=== PATIENT | male | born 1970 | race Caucasian/White ===

== ENCOUNTER 2017-09-07 19:49 | Emergency (ER) | payer BC ==
[2017-09-07 19:58] VITALS: BP 135/60; PULSE 114; RESP 18; TEMP 98.2
--- NOTE | 2017-09-07 20:27 | ED ---
Skin/Abscess/FB HPI - General Chief complaint: Skin/Abscess/Foreign Body Stated complaint: tic bite Time Seen by Provider: 09/07/17 19:58 Source: patient, RN notes reviewed, old records reviewed Mode of arrival: ambulatory Limitations: no limitations - History of Present Illness Initial comments: This is a 47-year-old male presents emergency department today chief complaint for evaluation of a tick bite and fatigue. He reports that he was bit by an Samoan dog tick. He showed me a picture of the tick. Patient states that he' s been feeling fatigued. He reports that around the tick bite site there is been some mild erythema. Patient was concerned about this. Patient states that he has a heart history. He denies any chest pain shortness of breath. He states that he just seemed very sleepy today. Patient denies any fever or chills. Patient does not know how long the tick was in place. - Related Data Home Medications Medication Instructions Recorded Confirmed Aspirin [Adult Low Dose Aspirin EC] 81 mg PO DAILY 03/18/16 03/18/16 Clopidogrel [Plavix] 75 mg PO DAILY 03/18/16 03/18/16 Evolocumab [Repatha Syringe] 140 mg SQ Q14D 03/18/16 03/18/16 Lisinopril [Zestril] 5 mg PO DAILY 03/18/16 03/18/16 [place]-3 Fatty Acids [[place]-3] 1,000 mg PO DAILY 03/18/16 03/18/16 Rosuvastatin [Crestor] 20 mg PO DAILY 03/18/16 03/18/16 Vitamin E 1,000 unit PO DAILY 03/18/16 03/18/16 Previous Rx's Medication Instructions Recorded Doxycycline [Vibramycin] 100 mg PO Q12HR #28 capsule 09/07/17 Allergies Allergy/AdvReac Type Severity Reaction Status Date / Time No Known Allergies Allergy Verified 09/07/17 19:58 Review of Systems ROS Statement: Those systems with pertinent positive or pertinent negative responses have been documented in the HPI. ROS Other: All systems not noted in ROS Statement are negative. Past Medical History Past Medical History: No Reported History History of Any Multi-Drug Resistant Organisms: None Reported Past Surgical History: Coronary Bypass/CABG Additional Past Surgical History / Comment(s): spleen Past Psychological History: No Psychological Hx Reported Smoking Status: Current every day smoker Past Alcohol Use History: Occasional Past Drug Use History: None Reported General Exam - General Exam Comments Initial Comments: 47-year-old male. Alert. No distress. Limitations: no limitations General appearance: alert, in no apparent distress Head exam: Present: atraumatic, normocephalic, normal inspection Eye exam: Present: normal appearance, PERRL, EOMI. Absent: scleral icterus, conjunctival injection, periorbital swelling ENT exam: Present: normal exam, mucous membranes moist Neck exam: Present: normal inspection. Absent: tenderness, meningismus, lymphadenopathy Respiratory exam: Present: normal lung sounds bilaterally. Absent: respiratory distress, wheezes, rales, rhonchi, stridor Cardiovascular Exam: Present: regular rate, normal rhythm, normal heart sounds. Absent: systolic murmur, diastolic murmur, rubs, gallop, clicks GI/Abdominal exam: Present: soft, normal bowel sounds. Absent: distended, tenderness, guarding, rebound, rigid Extremities exam: Present: normal inspection, full ROM, normal capillary refill , other (3 cm area of redness over the left lateral thigh around the area from the tick bite.). Absent: tenderness, pedal edema, joint swelling, calf tenderness Back exam: Present: normal inspection Neurological exam: Present: alert, oriented X3, CN II-XII intact Psychiatric exam: Present: normal affect, normal mood Skin exam: Present: warm, dry, intact, normal color. Absent: rash Course Vital Signs 09/07/17 19:55 Temperature 98.2 F Pulse Rate 114 H Respiratory 18 Rate Blood Pressure 135/60 O2 Sat by Pulse 99 Oximetry Medical Decision Making - Medical Decision Making 47-year-old male with a history of tick bite yesterday. No rashes subsided some erythema around the tick bite. Discussed that this tick can spread [place] spotted fever. Patient will be treated for prophylactically with Doxycycline. Will be discharged at this time with close follow-up with PCP. QUESTIONS answered and return parameters were discussed. Disposition Clinical Impression: Tick bite Disposition: HOME SELF-CARE Condition: Good Instructions: Tick Bite (ED), [place] Spotted Fever (ED), Lyme Disease ( ED) Additional Instructions: Patient advised to take the medication as prescribed. Follow-up with primary care provider in the next 1-2 days. Monitor the area of redness. Return to the emergency department if any other alarming signs or symptoms occur. Prescriptions: Doxycycline [Vibramycin] 100 mg PO Q12HR #28 capsule Is patient prescribed a controlled substance at d/c from ED?: No If prescribed controlled substance>3 days was MAPS reviewed?: No When asked, does pt state using other controlled substances?: No Referrals: Myesha Donnelly MD [Primary Care Provider] - 1-2 days Time of Disposition: 20:24
== END 2017-09-07 20:33 | disposition home or self-care (01) ==
LOC: EC 19:49
DX: S70.362A Insect bite (nonvenomous), left thigh, initial encounter (principal); R53.83 Other fatigue; F17.200 Nicotine dependence, unspecified, uncomplicated; Z79.02 Long term (current) use of antithrombotics/antiplatelets; Z79.82 Long term (current) use of aspirin; Z79.899 Other long term (current) drug therapy; Z95.1 Presence of aortocoronary bypass graft; W57.XXXA Bitten or stung by nonvenomous insect and other nonvenomous arthropods, initial encounter
CPT/HCPCS: 99282

== ENCOUNTER 2019-05-18 22:36 | Observation (INO) | payer BC ==
[2019-05-18] MEDS ORDERED: HYDROmorphone 1 MG/ML 1 ML SYRINGE IM STA (23:17)
--- NOTE | 2019-05-18 23:20 | ED ---
General Adult HPI - General Source: patient, family, RN notes reviewed Mode of arrival: EMS Limitations: no limitations <Arturo Stroud - Last Filed: 05/19/19 00:21> <Jose Lee - Last Filed: 05/23/19 07:45> - General Chief complaint: Fall Stated complaint: Rib injury Time Seen by Provider: 05/18/19 22:45 - History of Present Illness Initial comments: Patient is a pleasant 49-year-old male presenting to the emergency Department with fall and right rib injury. Patient states less than an hour ago he fell walking out of the bathroom. Patient believes he tripped. Patient may have struck the dresser and hurt the right ribs. Patient did hear a pop. Patient denies any dyspnea however states it does hurt to take deep breaths. No other area of injury or concern. No head injury or loss of consciousness. No midline back pain. No weakness. (Arturo Stroud) - Related Data Home Medications Medication Instructions Recorded Confirmed Aspirin [Adult Low Dose Aspirin EC] 81 mg PO DAILY 03/18/16 05/19/19 Clopidogrel [Plavix] 75 mg PO DAILY 03/18/16 05/19/19 Evolocumab [Repatha Syringe] 140 mg SQ Q14D 03/18/16 05/19/19 Lisinopril [Zestril] 5 mg PO DAILY 03/18/16 05/19/19 [place]-3 Fatty Acids [[place]-3] 2,000 mg PO AC-BID 03/18/16 05/19/19 Rosuvastatin [Crestor] 20 mg PO DAILY 03/18/16 05/19/19 Vitamin E 1,000 unit PO DAILY 03/18/16 05/19/19 Atenolol 25 mg PO DAILY 05/19/19 05/19/19 Allergies Allergy/AdvReac Type Severity Reaction Status Date / Time No Known Allergies Allergy Verified 05/19/19 09:24 Review of Systems ROS Other: All systems not noted in ROS Statement are negative. Constitutional: Denies: fever Eyes: Denies: eye pain ENT: Denies: ear pain Respiratory: Denies: cough Cardiovascular: Denies: chest pain Endocrine: Denies: fatigue Gastrointestinal: Denies: abdominal pain Genitourinary: Denies: dysuria Musculoskeletal: Denies: back pain Skin: Denies: rash Neurological: Denies: weakness <Arturo Stroud - Last Filed: 05/19/19 00:21> ROS Other: All systems not noted in ROS Statement are negative. <RosaJose - Last Filed: 05/23/19 07:45> ROS Statement: Those systems with pertinent positive or pertinent negative responses have been documented in the HPI. 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 Past Psychological History: No Psychological Hx Reported Smoking Status: Current some day smoker Past Alcohol Use History: Occasional Past Drug Use History: None Reported <Arturo Stroud - Last Filed: 05/19/19 00:21> - Past Family History Father Family Medical History: Coronary Artery Disease (CAD), Myocardial Infarction ([place]) Mother Family Medical History: Cancer, Hypertension Additional Family Medical History / Comment(s): Mother had breast cancer <RosaJose - Last Filed: 05/23/19 07:45> General Exam Limitations: no limitations General appearance: alert, in no apparent distress Head exam: Present: normocephalic Eye exam: Present: normal appearance Neck exam: Present: normal inspection. Absent: tenderness Respiratory exam: Present: normal lung sounds bilaterally, chest wall tenderness (Right lateral mid to lower ribs with abrasion and tenderness) Cardiovascular Exam: Present: regular rate, normal rhythm GI/Abdominal exam: Present: soft. Absent: distended, tenderness, guarding, rebound, rigid Extremities exam: Present: normal inspection Back exam: Present: normal inspection. Absent: CVA tenderness (R), vertebral tenderness Neurological exam: Present: alert. Absent: motor sensory deficit Psychiatric exam: Present: normal affect, normal mood Skin exam: Present: abrasion (Right mid to lower ribs) <Arturo Stroud - Last Filed: 05/19/19 00:21> Course <Arturo Stroud - Last Filed: 05/19/19 00:21> Vital Signs 05/18/19 05/19/19 05/19/19 22:43 00:50 02:22 Temperature 97.3 F L Pulse Rate 74 79 86 Respiratory 18 18 16 Rate Blood Pressure 105/99 109/58 119/84 O2 Sat by Pulse 99 97 96 Oximetry - Reevaluation(s) Reevaluation #1: 05/19/19 00:21 Patient reevaluated and still complaining of discomfort. Patient and are updated on room fractures. After discussion patient is agreeable to additional imaging and now is agreeable to IV placement. Patient previously had refused IV. He is will be endorsed Dr. Barron for final disposition pending CT results. (Arturo Stroud) Medical Decision Making - Lab Data Result diagrams: 05/19/19 00:35 05/19/19 00:35 <Jose Lee - Last Filed: 05/23/19 07:45> - Medical Decision Making Patient was found to have small pneumothorax, and case discussed with trauma surgeon covering who will accept with delayed imaging to ensure that there is no enlargement of a pneumothorax. Patient placed on 100% oxygen. (Jose Lee) - Lab Data Lab Results 05/19/19 05/19/19 05/19/19 Range/Units 00:35 00:35 00:35 WBC 10.9 H (3.8-10.6) k/uL RBC 4.66 (4.30-5.90) m/uL Hgb 15.8 (13.0-17.5) gm/dL Hct 46.6 (39.0-53.0) % MCV 99.9 (80.0-100.0) fL MCH 33.8 (25.0-35.0) pg MCHC 33.9 (31.0-37.0) g/dL RDW 12.7 (11.5-15.5) % Plt Count 204 (150-450) k/uL Neutrophils % 68 % Lymphocytes % 23 % Monocytes % 5 % Eosinophils % 1 % Basophils % 1 % Neutrophils # 7.4 (1.3-7.7) k/uL Lymphocytes # 2.5 (1.0-4.8) k/uL Monocytes # 0.6 (0-1.0) k/uL Eosinophils # 0.1 (0-0.7) k/uL Basophils # 0.1 (0-0.2) k/uL PT 10.1 (9.0-12.0) sec INR 1.0 (<1.2) APTT 22.7 (22.0-30.0) sec Sodium 140 (137-145) mmol/L Potassium 4.1 (3.5-5.1) mmol/L Chloride 108 H (98-107) mmol/L Carbon Dioxide 23 (22-30) mmol/L Anion Gap 9 mmol/L BUN 14 (9-20) mg/dL Creatinine 0.81 (0.66-1.25) mg/dL Est GFR (CKD-EPI)AfAm >90 (>60 ml/min/1.73 sqM) Est GFR (CKD-EPI)NonAf >90 (>60 ml/min/1.73 sqM) Glucose 114 H (74-99) mg/dL Calcium 9.0 (8.4-10.2) mg/dL Total Bilirubin 0.5 (0.2-1.3) mg/dL AST 91 H (17-59) U/L ALT 108 H (4-49) U/L Alkaline Phosphatase 102 (38-126) U/L Total Protein 7.3 (6.3-8.2) g/dL Albumin 4.2 (3.5-5.0) g/dL Serum Alcohol 211 H* mg/dL Blood Type Blood Type Recheck Bld Type Recheck Status Antibody Screen Spec Expiration Date 05/19/19 Range/Units 00:35 WBC (3.8-10.6) k/uL RBC (4.30-5.90) m/uL Hgb (13.0-17.5) gm/dL Hct (39.0-53.0) % MCV (80.0-100.0) fL MCH (25.0-35.0) pg MCHC (31.0-37.0) g/dL RDW (11.5-15.5) % Plt Count (150-450) k/uL Neutrophils % % Lymphocytes % % Monocytes % % Eosinophils % % Basophils % % Neutrophils # (1.3-7.7) k/uL Lymphocytes # (1.0-4.8) k/uL Monocytes # (0-1.0) k/uL Eosinophils # (0-0.7) k/uL Basophils # (0-0.2) k/uL PT (9.0-12.0) sec INR (<1.2) APTT (22.0-30.0) sec Sodium (137-145) mmol/L Potassium (3.5-5.1) mmol/L Chloride (98-107) mmol/L Carbon Dioxide (22-30) mmol/L Anion Gap mmol/L BUN (9-20) mg/dL Creatinine (0.66-1.25) mg/dL Est GFR (CKD-EPI)AfAm (>60 ml/min/1.73 sqM) Est GFR (CKD-EPI)NonAf (>60 ml/min/1.73 sqM) Glucose (74-99) mg/dL Calcium (8.4-10.2) mg/dL Total Bilirubin (0.2-1.3) mg/dL AST (17-59) U/L ALT (4-49) U/L Alkaline Phosphatase (38-126) U/L Total Protein (6.3-8.2) g/dL Albumin (3.5-5.0) g/dL Serum Alcohol mg/dL Blood Type O Negative Blood Type Recheck No Previous Record Bld Type Recheck Status CABO Indicated Antibody Screen NEGATIVE Spec Expiration Date 05/22/2019 - 2338 Disposition <Arturo Stroud - Last Filed: 05/19/19 00:21> <Jose Lee - Last Filed: 05/23/19 07:45> Clinical Impression: Fall, Pneumothorax on right Disposition: ADMITTED IP TO THIS [facility] Condition: Fair
--- NOTE | 2019-05-18 23:54 | XR ---
EXAMINATION TYPE: XR ribs RT w pa chest xray DATE OF EXAM: 05/18/2019 COMPARISON: NONE HISTORY: Chest pain rib pain TECHNIQUE: 5 views FINDINGS: Heart is normal. Lungs are clear of infiltrate. There is no pleural effusion or pneumothora x. There is nondisplaced fracture right lateral seventh rib. There is probably also fracture of the r ight eighth rib. There are sternal wires. IMPRESSION: Right-sided nondisplaced rib fractures. No active cardiopulmonary disease.
[2019-05-19] MEDS ORDERED: HYDROmorphone 1 MG/ML 1 ML SYRINGE IVP STA (00:19)
[2019-05-19] MEDS ORDERED: SODIUM CHLORIDE 0.9% 1,000 ML IV STA (00:19)
[2019-05-19 01:12] LABS: Basophils # (A) 0.1 k/uL (0-0.2); Basophils % (A) 1 %; Eosinophils # (A) 0.1 k/uL (0-0.7); Eosinophils % (A) 1 %; HCT 46.6 % (39.0-53.0); HGB 15.8 gm/dL (13.0-17.5); Lymphocytes # (A) 2.5 k/uL (1.0-4.8); Lymphocytes % (A) 23 %; MCH 33.8 pg (25.0-35.0); MCHC 33.9 g/dL (31.0-37.0); MCV 99.9 fL (80.0-100.0); Mean Platelet Volume 7.3; Monocytes # (A) 0.6 k/uL (0-1.0); Monocytes % (A) 5 %; Neutrophils # (A) 7.4 k/uL (1.3-7.7); Neutrophils % (A) 68 %; Platelet Count 204 k/uL (150-450); RBC 4.66 m/uL (4.30-5.90); RDW 12.7 % (11.5-15.5); WBC 10.9 k/uL (3.8-10.6)
[2019-05-19 01:16] LABS: ALT 108 U/L (4-49); AST 91 U/L (17-59); African American GFR (CKD) >90 (>60 ml/min/1.73 sqM); Albumin 4.2 g/dL (3.5-5.0); Alkaline Phosphatase 102 U/L (38-126); Anion Gap 9 mmol/L; Blood Urea Nitrogen 14 mg/dL (9-20); Carbon Dioxide 23 mmol/L (22-30); Chloride 108 mmol/L (98-107); Glucose 114 mg/dL (74-99); Non-African American GFR(CKD) >90 (>60 ml/min/1.73 sqM); Potassium 4.1 mmol/L (3.5-5.1); Sodium 140 mmol/L (137-145); Total Bilirubin 0.5 mg/dL (0.2-1.3); Total Protein 7.3 g/dL (6.3-8.2)
[2019-05-19 01:17] LABS: Partial Thromboplastin Time 22.7 sec (22.0-30.0); Prothrombin Time 10.1 sec (9.0-12.0)
[2019-05-19 01:33] LABS: Alcohol 211 mg/dL
--- NOTE | 2019-05-19 01:33 | CT ---
EXAMINATION TYPE: CT ChestAbdPelvis w con DATE OF EXAM: 05/19/2019 COMPARISON: None HISTORY: Patient presents with right sided pain after fall. CT DLP: 949.9 mGycm Automated exposure control for dose reduction was used. CONTRAST: Performed with IV Contrast, patient injected with 100mL mL of Isovue 300. Multiple axial sections were obtained from the thoracic inlet to the floor the pelvis with intravenou s contrast Isovue 100 mL. FINDINGS: There is mild subsegmental atelectasis at the posterior lung bases. There is small right-sided pneumo thorax less than 10%. Mediastinum is normal. Thoracic aorta appears intact without evidence of aneury sm or dissection. There is no pericardial effusion. There is no pleural effusion. Liver and spleen appear normal. Gallbladder appears normal. Bile ducts are not dilated. There is no p ancreatic mass. Stomach is intact. There is 1.8 cm left adrenal mass. Kidneys show satisfactory contrast opacification. There is no hydr onephrosis. Ureters are not dilated. Appendix appears normal. There is no retroperitoneal adenopathy. Bladder distends smoothly. There is no inguinal hernia. There is no free fluid in the pelvis. There is no mesenteric edema. There is no ascites or free air. There is no sign of a bowel obstructio n. The shoulder joints appear intact. I see no displaced rib fracture. Thoracic and lumbar vertebra have normal alignment. There is no compression fracture. The sternum is intact. There are sternal wires. Sacroiliac joints appear normal. Bony pelvis appears intact. Proximal femurs and hip joints are intac t. IMPRESSION: Small right-sided pneumothorax. No evidence of traumatic injury within the abdomen and pelvis. Mild a therosclerotic vascular disease. Minor degenerative spurring in the lumbar spine. This exam was discu ssed with Dr. Lee at 1:30 AM. There is relative high attenuation left adrenal mass of uncertain significance.
[2019-05-19] MEDS ORDERED: NALOXONE 0.4 MG/ML 1 ML VIAL IV PRN (01:56)
[2019-05-19] MEDS ORDERED: MAG HYDROX/AL HYDROX/SIMETH 30 ML CUP PO PRN (01:56)
[2019-05-19] MEDS ORDERED: ONDANSETRON 4 MG/2 ML VIAL IVP PRN (01:56)
[2019-05-19] MEDS: MORPHINE SULFATE 4 MG/ML SYRINGE IV PRN ×5 (02:16→20:34)
[2019-05-19 02:39] LABS: Appearance,Urine Clear (Clear); Bilirubin,Urine Negative (Negative); Blood,Urine Negative (Negative); Color,Urine Light Yellow; Glucose,Urine (UA) Negative (Negative); Ketones,Urine Negative (Negative); Leukocyte Esterase,Urine Negative (Negative); Nitrite,Urine Negative (Negative); Protein,Urine Negative (Negative); Specific Gravity,Urine 1.006 (1.001-1.035); Urobilinogen,Urine <2.0 mg/dL (<2.0)
[2019-05-19 03:09] LABS: Amphetamine Screen,Urine Not Detected (NotDetected); Barbiturate Screen,Urine Not Detected (NotDetected); Benzodiazepines Screen,Urine Not Detected (NotDetected); Cocaine Screen,Urine Not Detected (NotDetected); Methadone Screen, Urine Not Detected (NotDetected); Opiate Screen,Urine Detected (NotDetected); Oxycodone Screen, Urine Not Detected (NotDetected); Phencyclidine Screen,Urine Not Detected (NotDetected); Tricyclic Antidepressant,Urine Not Detected (NotDetected); Urn Cannabinoid Scrn Not Detected (NotDetected)
[2019-05-19] MEDS: SODIUM CHLORIDE 0.9% 1,000 ML IV SCH (03:54)
--- NOTE | 2019-05-19 08:09 | XR ---
EXAMINATION TYPE: XR chest 2V DATE OF EXAM: 05/19/2019 COMPARISON: Prior chest 05/18/2019, chest x-ray 05/18/2019 HISTORY: Trauma and pain TECHNIQUE: Frontal and lateral views of the chest are obtained. FINDINGS: Small right apical pneumothorax is present. Some basilar atelectatic changes are seen. Rig ht hemidiaphragm remains elevated. Patient is post median sternotomy. Heart size is unchanged. IMPRESSION: Small right apical pneumothorax, results relayed to Rabia on [address]. at the time of interp retation of the exam telephonically.
[2019-05-19] MEDS: FAMOTIDINE 20 MG TAB PO SCH ×2 (08:10→20:09)
[2019-05-19] MEDS: LISINOPRIL 5 MG TAB PO SCH (08:10)
[2019-05-19] MEDS: ASPIRIN 81 MG PO SCH (08:10)
[2019-05-19] MEDS: CLOPIDOGREL 75 MG TAB PO SCH (08:10)
[2019-05-19] MEDS: ATORVASTATIN 40 MG TAB PO SCH (08:10)
[2019-05-19] MEDS: HYDROcodone/APAP 5-325MG 1 EACH TAB PO PRN ×3 (08:23→18:18)
--- NOTE | 2019-05-19 11:09 | P.GSHP ---
History of Present Illness H&P Date: 05/19/19 Chief Complaint: fall CHIEF COMPLAINT: fall HISTORY OF PRESENT ILLNESS: 49 year old male who presented to the ER after tripping in his bedroom, striking a dresser, and falling. Patient reports mild shortness of breath and increased pain on inspiration. Patient underwent workup in the ER including xray and CT scans. X-ray of right ribs was completed revealing right-sided non-displaced rib fractures of the 7th and 8th ribs. CT c hest abdomen pelvis was completed revealing small right-sided pneumothorax. No evidence of traumatic injury within the abdomen and pelvis. Repeat XR completed today reveals small right apical pneumothorax. Labs on admission reveal WBC 10.9. Hemoglobin 15.8. Platelet count 204. Sodium 140. Potassium 4.1. BUN 14. Creatinine 0.8. Bilirubin 0.5. AST 91. ALT 108. Serum alcohol 211. PAST MEDICAL HISTORY: See list. PAST SURGICAL HISTORY: See list. SOCIAL HISTORY: No illicit drug use. REVIEW OF SYSTEMS: CONSTITUTIONAL: Denies fever or chills. HEENT: Denies blurred vision, vision changes, or eye pain. Denies hemoptysis CARDIOVASCULAR: Denies chest pain or pressure. RESPIRATORY: No shortness of breath. GASTROINTESTINAL: Refer to HPI for pertinent findings HEMATOLOGIC: Denies bleeding disorders. GENITOURINARY: Denies any blood in urine. SKIN: Denies pruitis. Denies rash. PHYSICAL EXAM: VITAL SIGNS: Reviewed. GENERAL: Well-developed in no acute distress. HEENT: No sclera icterus. Extraocular movements grossly intact. Moist buccal mucosa. Head is atraumatic, normocephalic. RESP: Currently on NRB mask. Respirations equal. Nonlabored. ABDOMEN: Soft. Nondistended. Nontender. NEUROLOGIC: Alert and oriented. Cranial nerves II through XII grossly intact. ASSESSMENT: 1. Trauma, s/p fall 2. Right sided rib fractures 3. Small right sided pneumothorax 4. ETOH use, alcohol level 211 on admission PLAN: Consult pulmonary and CTS for evaluation Wean oxygen as tolerated Obtain incentive spirometer Consult hospitalist for medical management Continue diet as tolerated Nurse practitioner note has been reviewed by physician. Signing provider agrees with the documented findings, assessment, and plan of care. 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 "6 way bypass" 2 heart stents Past Anesthesia/Blood Transfusion Reactions: No Reported Reaction Past Psychological History: No Psychological Hx Reported, Anxiety Smoking Status: Current some day smoker Past Alcohol Use History: Occasional Additional Past Alcohol Use History / Comment(s): pt states sometimes on the weekend. Past Drug Use History: None Reported - Past Family History Father Family Medical History: Coronary Artery Disease (CAD), Myocardial Infarction ( [place]) Mother Family Medical History: Hypertension Medications and Allergies Home Medications Medication Instructions Recorded Confirmed Type Aspirin [Adult Low Dose Aspirin EC] 81 mg PO DAILY 03/18/16 05/19/19 History Clopidogrel [Plavix] 75 mg PO DAILY 03/18/16 05/19/19 History Evolocumab [Repatha Syringe] 140 mg SQ Q14D 03/18/16 05/19/19 History Lisinopril [Zestril] 5 mg PO DAILY 03/18/16 05/19/19 History [place]-3 Fatty Acids [[place]-3] 2,000 mg PO AC-BID 03/18/16 05/19/19 History Rosuvastatin [Crestor] 20 mg PO DAILY 03/18/16 05/19/19 History Vitamin E 1,000 unit PO DAILY 03/18/16 05/19/19 History Atenolol 25 mg PO DAILY 05/19/19 05/19/19 History Allergies Allergy/AdvReac Type Severity Reaction Status Date / Time No Known Allergies Allergy Verified 05/19/19 09:24 Surgical - Exam Vital Signs Temp Pulse Resp BP Pulse Ox 97.3 F L 74 18 105/99 99 05/18/19 22:43 05/18/19 22:43 05/18/19 22:43 05/18/19 22:43 05/18/19 22:43 Results - Labs 05/19/19 00:35 05/19/19 00:35 Abnormal Lab Results - Last 24 Hours (Table) 05/19/19 05/19/19 05/19/19 Range/Units 00:35 00:35 02:22 WBC 10.9 H (3.8-10.6) k/uL Chloride 108 H (98-107) mmol/L Glucose 114 H (74-99) mg/dL AST 91 H (17-59) U/L ALT 108 H (4-49) U/L Urine Opiates Screen Detected H (NotDetected) Serum Alcohol 211 H* mg/dL Diabetes panel 05/19/19 Range/Units 00:35 Sodium 140 (137-145) mmol/L Potassium 4.1 (3.5-5.1) mmol/L Chloride 108 H (98-107) mmol/L Carbon Dioxide 23 (22-30) mmol/L BUN 14 (9-20) mg/dL Creatinine 0.81 (0.66-1.25) mg/dL Glucose 114 H (74-99) mg/dL Calcium 9.0 (8.4-10.2) mg/dL AST 91 H (17-59) U/L ALT 108 H (4-49) U/L Alkaline Phosphatase 102 (38-126) U/L Total Protein 7.3 (6.3-8.2) g/dL Albumin 4.2 (3.5-5.0) g/dL Calcium panel 05/19/19 Range/Units 00:35 Calcium 9.0 (8.4-10.2) mg/dL Albumin 4.2 (3.5-5.0) g/dL Pituitary panel 05/19/19 Range/Units 00:35 Sodium 140 (137-145) mmol/L Potassium 4.1 (3.5-5.1) mmol/L Chloride 108 H (98-107) mmol/L Carbon Dioxide 23 (22-30) mmol/L BUN 14 (9-20) mg/dL Creatinine 0.81 (0.66-1.25) mg/dL Glucose 114 H (74-99) mg/dL Calcium 9.0 (8.4-10.2) mg/dL Adrenal panel 05/19/19 Range/Units 00:35 Sodium 140 (137-145) mmol/L Potassium 4.1 (3.5-5.1) mmol/L Chloride 108 H (98-107) mmol/L Carbon Dioxide 23 (22-30) mmol/L BUN 14 (9-20) mg/dL Creatinine 0.81 (0.66-1.25) mg/dL Glucose 114 H (74-99) mg/dL Calcium 9.0 (8.4-10.2) mg/dL Total Bilirubin 0.5 (0.2-1.3) mg/dL AST 91 H (17-59) U/L ALT 108 H (4-49) U/L Alkaline Phosphatase 102 (38-126) U/L Total Protein 7.3 (6.3-8.2) g/dL Albumin 4.2 (3.5-5.0) g/dL
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
--- NOTE | 2019-05-19 15:06 | CONS ---
CONSULTATION PULMONARY/CRITICAL CARE CONSULTATION: DATE OF CONSULTATION: 05/19/2019 This is a 49-year-old gentleman who apparently presents to the emergency room via EMS. He apparently tripped on threshold at his house and fell against a chest of drawers or dresser. He hit on the backside of his right chest area. For that reason, he came in to be evaluated. The patient states that he hurt his rib crack when he did it. Anyway, the patient was evaluated in the emergency room. He was short of breath. Patient was having pain in the right chest area, particularly in the back of the right chest or the back area. He was apparently found to have a nondisplaced rib fracture and also a relatively smaller pneumothorax by CAT scan. Denies any trauma to his head. He denied loss of consciousness. Denies any chest pain or chest discomfort. The shortness of breath is particularly when he takes a deep breath. Today, I see him in the room. He is doing relatively well. He is on some nasal O2. In addition, he has been seen by Cardiothoracic Surgery. MEDICATIONS: Reviewed. He is on aspirin, Plavix, Repatha, lisinopril, omega-3 fatty acids, Crestor, and vitamin E. His previous medications included doxycycline. ALLERGIES: Denied. PAST MEDICAL HISTORY: Positive for CAD. He has had previous bypass grafting. He also has a history of hyperlipidemia. He has also had a splenectomy. SOCIAL HISTORY: Positive for ongoing tobacco use. He has been smoking for about 32 to 35 years about a pack a day. He drinks every day, maybe 2 beers. Denies any illicit drug use. FAMILY HISTORY: Noncontributory. Both mother and father are healthy. 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 REVIEW OF SYSTEMS: CONSTITUTIONAL: Negative. NEUROLOGIC: Negative. HEENT: Negative. CARDIOVASCULAR: Negative. PULMONARY: Shortness of breath, right posterior chest discomfort/ GI: Negative. : Negative. RHEUMATOLOGIC: Negative. IMMUNOLOGIC: Negative. ENDOCRINOLOGIC: Negative. DERMATOLOGIC: Negative. Current vital signs are reviewed. Temperature is 98, heart rate 78, respiratory rate 16, blood pressure 116/69 mean 84, 2 L saturation 97%. Appears in no acute distress. HEENT: Examination is grossly unremarkable. Mucous membranes are moist. Nasal O2 in place. NECK: Supple. Full range of motion. No adenopathy. Neck veins are flat. CARDIOVASCULAR: Examination reveals regular rhythm and rate. S1, S2 normal. No S3, S4, or murmur. LUNGS: Reveal relatively clear breath sounds. He does not take real deep breaths because of the pain when doing so. I do not really hear any rhonchi or wheezes. There are no crackles. Also, palpation of the right lateral posterior chest area does not reveal any crepitus or anything to suggest subcutaneous emphysema or any rib displacement. ABDOMEN: Soft. Bowel sounds are heard. EXTREMITIES: Intact. No cyanosis, clubbing, or edema. SKIN: Without rash. NEUROLOGIC: Examination is brief but nonfocal. LAB DATA: Reviewed. White count 10.9, hemoglobin 15.8, hematocrit 46.6, platelet count 204,000. PT, INR, PTT normal. Sodium, potassium normal. Chloride is 108, CO2 is 23. The rest of the labs look good. The urine is negative. Tox screen was positive for opiates and his alcohol level was quite high at 211. His chest and rib x-rays show a nondisplaced right lateral 7th rib fracture. There may also be fracture of the right 8th rib as well. No pneumothorax was seen on the chest x- ray. A repeat chest x-ray shows a small right apical pneumothorax. A CT scan of the chest, abdomen and pelvis shows a small right-sided pneumothorax. There is no evidence of any traumatic injury within the abdomen or pelvis. Medications are reviewed. Currently he is on aspirin, Lipitor, Plavix, famotidine, [place], lisinopril, magnesium, and aluminum hydroxide, which I believe is Maalox, morphine sulfate, Narcan, Zofran, and a basic IV. ASSESSMENT: 1. Status post recent injury to the right lateral and posterior chest with fractures of the 7th and 8th ribs on the right, nondisplaced fractures, as well as a small right-sided pneumothorax. 2. Traumatic pneumothorax, right side, relatively small and contained. 3. History of coronary artery disease with previous bypass grafting. 4. Hyperlipidemia. 5. Possible alcohol abuse or at least chronic alcohol use. PLAN: The patient looks relatively stable. He is on O2 at 2 L. His saturations are excellent. Thoracic Surgery ordered him an incentive spirometer. His pneumothorax is relatively small. The patient in my opinion does not need any intervention at this time including a small bore catheter or a standard chest tube. I do not believe the patient would benefit either from a Thora vent. Additional recommendations and suggestions are forthcoming. Will continue to follow. We encouraged the use of oxygen therapy to help the pneumothorax resolve as well as incentive spirometry. No additional recommendations are made at this time. DANUTA / FAUSTON: [phone] /
[2019-05-19 20:38] VITALS: RESP 18
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
[2019-05-20] MEDS: HYDROcodone/APAP 5-325MG 1 EACH TAB PO PRN (00:17)
[2019-05-20] MEDS: SODIUM CHLORIDE 0.9% 1,000 ML IV SCH (03:59)
[2019-05-20 04:58] VITALS: BP 128/85; PULSE 66; TEMP 97.2
[2019-05-20] MEDS: MORPHINE SULFATE 4 MG/ML SYRINGE IV PRN ×2 (05:46→16:01)
[2019-05-20] MEDS: ASPIRIN 81 MG PO SCH (08:26)
[2019-05-20] MEDS: LISINOPRIL 5 MG TAB PO SCH (08:27)
[2019-05-20] MEDS: CLOPIDOGREL 75 MG TAB PO SCH (08:27)
[2019-05-20] MEDS: ATORVASTATIN 40 MG TAB PO SCH (08:27)
[2019-05-20] MEDS: FAMOTIDINE 20 MG TAB PO SCH (08:27)
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
[2019-05-20] MEDS: KETOROLAC 30 MG/ML 1 ML VIAL IVP SCH ×2 (08:36→11:14)
--- NOTE | 2019-05-20 08:52 | XR ---
EXAMINATION TYPE: XR chest 2V DATE OF EXAM: 05/20/2019 COMPARISON: 05/19/2019 TECHNIQUE: PA and lateral views submitted. HISTORY: Abnormal x-ray FINDINGS: Stable appearing right apical pneumothorax measuring approximately 5-10%. Bilateral areas of consolid ation are noted with tiny right effusion. Cardiomegaly and postsurgical changes noted. IMPRESSION: 1. Stable small right apical pneumothorax. 2. Bilateral areas of infiltrate and small right effusion stable.
[2019-05-20] MEDS ORDERED: ATENOLOL 25 MG TAB PO SCH (09:00)
--- NOTE | 2019-05-20 12:07 | P.PN ---
Subjective Progress Note Date: 05/20/19 Principal diagnosis: Status post recent injury to the right lateral and posterior chest with fractures of the seventh and eighth ribs on the right nondisplaced fractures and a small right-sided pneumothorax On 05/20/2019 patient seen in follow-up on the general medical floor, he is calm and comfortable, his pain is fairly well controlled, does not appear to be in any acute distress, does not appear to be in any respiratory distress, remains on supplement oxygen currently at 3 L, his pulse ox is 96-98%, he is afebrile, hemodynamically patient is stable, respirations are nonlabored, lung sounds are clear, diminished at the bases, breath sounds are equal, today's chest x-ray has been reviewed showing stable right apical pneumothorax which is small Objective - Vital Signs Vital signs: Vital Signs Temp 97.2 F L 05/20/19 04:57 Pulse 66 05/20/19 04:57 Resp 18 05/20/19 04:57 BP 128/85 05/20/19 04:57 Pulse Ox 96 05/20/19 04:57 Intake & Output 05/19/19 05/20/19 05/20/19 18:59 06:59 18:59 Intake Total 160 510 Balance 160 510 Intake: Intake, IV Titration 160 510 Amount Sodium Chloride 0.9% 1, 350 000 ml @ 100 mls/hr IV . Q10H [facility] Rx#:[id number] Sodium Chloride 0.9% 1, 160 160 000 ml @ 20 mls/hr IV . Q24H [facility] Rx#:[id number] Other: Voiding Method Toilet Toilet # Voids 1 - Exam GENERAL EXAM: Alert, very pleasant, 49-year-old white male, currently on 3 L of oxygen with a pulse ox of 96-98%, comfortable in no apparent distress. HEAD: Normocephalic/atraumatic. EYES: Normal reaction of pupils, equal size. Conjunctiva pink, sclera white. NOSE: Clear with pink turbinates. THROAT: No erythema or exudates. NECK: No masses, no JVD, no thyroid enlargement, no adenopathy. CHEST: No chest wall deformity. Symmetrical expansion. LUNGS: Equal air entry with no crackles, wheeze, rhonchi or dullness. CVS: Regular rate and rhythm, normal S1 and S2, no gallops, no murmurs, no rubs ABDOMEN: Soft, nontender. No hepatosplenomegaly, normal bowel sounds, no guard ing or rigidity. EXTREMITIES: No clubbing, no edema, no cyanosis, 2+ pulses and upper and lower extremities. MUSCULOSKELETAL: Muscle strength and tone normal. SPINE: No scoliosis or deformity SKIN: No rashes CENTRAL NERVOUS SYSTEM: Alert and oriented -3. No focal deficits, tone is normal in all 4 extremities. PSYCHIATRIC: Alert and oriented -3. Appropriate affect. Intact judgment and insight. - Labs CBC & Chem 7: 05/19/19 00:35 05/19/19 00:35 Assessment and Plan Plan: Assessment: #1. Status post recent injury to the right lateral and posterior chest wall with fractures of the seventh and eighth ribs on the right, nondisplaced fractures and a small right apical pneumothorax #2. Traumatic pneumothorax on the right side relatively small and contained, and stable #3. History of coronary artery disease with previous bypass grafting #4. Hyperlipidemia #5. Possible alcohol abuse Plan: Continue encouraging deep breathing and coughing, pain control, encourage ambulation, today's chest x-ray shows small right apical pneumothorax stable in appearance, respirations are nonlabored, wean FiO2, encourage ambulation, from pulmonary perspective patient is stable for discharge home today with follow-up with Dr. Marie in the office I performed a history & physical examination of the patient and discussed their management with my nurse practitioner, Ana Cristina Brady. I reviewed the nurse practitioner's note and agree with the documented findings and plan of care. Lung sounds are positive for diminished breath sounds. The findings and the impression was discussed with the patient. I attest to the documentation by the nurse practitioner. Time with Patient: Less than 30
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
--- NOTE | 2019-05-20 15:21 | P.DS ---
Providers Date of admission: 05/19/19 01:58 Expected date of discharge: 05/20/19 Attending physician: David Dorado Consults: 05/19/19 09:42 Consult Physician Routine Consulting Provider: Devon Marie Consult Reason/Comments: rib fractures, pneumothorax Do you want consulting provider notified?: Yes Consult Physician Routine Consulting Provider: Rojelio Cason Consult Reason/Comments: rib fractures, pneumothorax Do you want consulting provider notified?: Yes 05/19/19 11:05 Consult Physician Routine Consulting Provider: Elyssa Thrasher Consult Reason/Comments: medical management Do you want consulting provider notified?: Yes Primary care physician: Myesha Donnelly - Discharge Diagnosis(es) (1) Pneumothorax on right Patient admitted after falling and hitting his chest on a dresser at home. Patient developed a rib fracture with small pneumothorax. He was seen by pulmonary and cardiothoracic surgery. Doing better today. He would like to go home. Chest x-ray shows stable pneumothorax. He has been cleared by pulmonary. We'll discharge with plans for outpatient follow-up with pulmonary and primary care. Patient requesting to see a different primary care physician. Arrangements will be made to follow-up with Dr. Ángel Ruano. Current Visit: Yes Status: Acute Patient Condition at Discharge: Fair Plan - Discharge Summary Discharge Rx Participant: No New Discharge Prescriptions: No Action Vitamin E 1,000 unit PO DAILY Rosuvastatin [Crestor] 20 mg PO DAILY Euclid-3 Fatty Acids [Euclid-3] 2,000 mg PO AC-BID Aspirin [Adult Low Dose Aspirin EC] 81 mg PO DAILY Lisinopril [Zestril] 5 mg PO DAILY Clopidogrel [Plavix] 75 mg PO DAILY Evolocumab [Repatha Syringe] 140 mg SQ Q14D Atenolol 25 mg PO DAILY Discharge Medication List Aspirin [Adult Low Dose Aspirin EC] 81 mg PO DAILY 03/18/16 [History] Clopidogrel [Plavix] 75 mg PO DAILY 03/18/16 [History] Evolocumab [Repatha Syringe] 140 mg SQ Q14D 03/18/16 [History] Lisinopril [Zestril] 5 mg PO DAILY 03/18/16 [History] Euclid-3 Fatty Acids [Euclid-3] 2,000 mg PO AC-BID 03/18/16 [History] Rosuvastatin [Crestor] 20 mg PO DAILY 03/18/16 [History] Vitamin E 1,000 unit PO DAILY 03/18/16 [History] Atenolol 25 mg PO DAILY 05/19/19 [History] Follow up Appointment(s)/Referral(s): Jorge Ruano MD [REFERRING] - 1 Week (patient will have to call and schedule own appt.patient is new to this office) Devon Marie DO [Doctor of Osteopathic Medicine] - 05/28/19 1:30 pm Patient Instructions/Handouts: Traumatic Pneumothorax (DC) Activity/Diet/Wound Care/Special Instructions: activity limited until follow up regular diet.
== END 2019-05-20 16:20 | disposition home or self-care (01) ==
LOC: EC 22:36 → 5NMEDONC 05-19 01:58
PROVIDERS: ADMIT Surgery; ATTEND Surgery
DX: S27.0XXA Traumatic pneumothorax, initial encounter (principal); S22.41XA Multiple fractures of ribs, right side, initial encounter for closed fracture; S20.311A Abrasion of right front wall of thorax, initial encounter; I25.10 Atherosclerotic heart disease of native coronary artery without angina pectoris; R74.0 Nonspecific elevation of levels of transaminase and lactic acid dehydrogenase [LDH]; E78.5 Hyperlipidemia, unspecified; F41.9 Anxiety disorder, unspecified; R91.8 Other nonspecific abnormal finding of lung field; J90 Pleural effusion, not elsewhere classified; F17.210 Nicotine dependence, cigarettes, uncomplicated; F10.129 Alcohol abuse with intoxication, unspecified; Y90.7 Blood alcohol level of 200-239 mg/100 ml; Z95.1 Presence of aortocoronary bypass graft; Z95.5 Presence of coronary angioplasty implant and graft; Z90.81 Acquired absence of spleen; Z79.82 Long term (current) use of aspirin; Z79.02 Long term (current) use of antithrombotics/antiplatelets; Z79.899 Other long term (current) drug therapy; Z87.828 Personal history of other (healed) physical injury and trauma; Z82.49 Family history of ischemic heart disease and other diseases of the circulatory system; Z80.3 Family history of malignant neoplasm of breast; W01.190A Fall on same level from slipping, tripping and stumbling with subsequent striking against furniture, initial encounter; Y92.013 Bedroom of single-family (private) house as the place of occurrence of the external cause
CPT/HCPCS: 96376 ×2; 96361 ×2; 96375 ×2; 96372; 96374; 99285; 36415; 86900; 86901; 80053; 85025; 85610; 85730; 86850; 81003; 80306; 80320; 71101; 71046 ×2; 71260; 74177; G0378 ×2; J2270 ×2; J1885; J1170 ×2; Q9967

== ENCOUNTER 2019-11-27 11:02 | Emergency (ER) | payer BC ==
[2019-11-27] MEDS ORDERED: MORPHINE SULFATE 4 MG/ML SYRINGE IV STA (11:26)
[2019-11-27] MEDS ORDERED: SODIUM CHLORIDE 0.9% 500 ML 500 ML IV STA (11:26)
[2019-11-27 12:01] LABS: ALT 99 U/L (4-49); AST 89 U/L (17-59); African American GFR (CKD) >90 (>60 ml/min/1.73 sqM); Albumin 3.9 g/dL (3.5-5.0); Alkaline Phosphatase 66 U/L (38-126); Anion Gap 6 mmol/L; Blood Urea Nitrogen 13 mg/dL (9-20); Calcium 8.7 mg/dL (8.4-10.2); Carbon Dioxide 23 mmol/L (22-30); Chloride 110 mmol/L (98-107); Glucose 132 mg/dL (74-99); Non-African American GFR(CKD) >90 (>60 ml/min/1.73 sqM); Potassium 4.2 mmol/L (3.5-5.1); Sodium 139 mmol/L (137-145); Total Bilirubin 0.6 mg/dL (0.2-1.3); Total Protein 6.7 g/dL (6.3-8.2)
[2019-11-27 12:04] LABS: Basophils # (A) 0.1 k/uL (0-0.2); Basophils % (A) 1 %; Eosinophils # (A) 0.1 k/uL (0-0.7); Eosinophils % (A) 1 %; HCT 47.1 % (39.0-53.0); HGB 16.1 gm/dL (13.0-17.5); Lymphocytes # (A) 1.7 k/uL (1.0-4.8); Lymphocytes % (A) 20 %; MCH 34.1 pg (25.0-35.0); MCHC 34.2 g/dL (31.0-37.0); Mean Platelet Volume 7.1; Monocytes # (A) 0.4 k/uL (0-1.0); Monocytes % (A) 5 %; Neutrophils # (A) 6.3 k/uL (1.3-7.7); Neutrophils % (A) 73 %; Platelet Count 198 k/uL (150-450); RBC 4.71 m/uL (4.30-5.90); RDW 12.6 % (11.5-15.5); WBC 8.7 k/uL (3.8-10.6)
[2019-11-27] MEDS ORDERED: SODIUM CHLORIDE 0.9% 500 ML 500 ML IV ONE (12:07)
[2019-11-27] MEDS ORDERED: HYDROmorphone 0.5 MG/0.5 ML SYRINGE IVP STA (12:13)
--- NOTE | 2019-11-27 13:01 | CT ---
EXAMINATION TYPE: CT abdomen pelvis w con DATE OF EXAM: 11/27/2019 REFERENCE: Previous CT scan of the chest, abdomen and pelvis dated 05/19/2019. HISTORY: abdominal pain HISTORY: Lt flank pain CT DLP: 840.1 mGy Automated exposure control for dose reduction was used. TECHNIQUE: Helical acquisition through the abdomen and pelvis was obtained following the oral ingesti on of without Oral Contrast and following intravenous administration of 100 mL of Isovue 300. The yolette a was reformatted in axial, coronal and sagittal projections. FINDINGS: The visualized portions of the lungs are clear. There is no pleural or pericardial fluid. The heart is not enlarged. Within the abdomen, the liver is mildly prominent measuring 18 cm. The gallbladder and spleen are nor mal. There is a 2 cm left adrenal mass lesion. The right adrenal gland appears normal. There is no evidence of hydronephrosis or nephrolithiasis. Both kidneys demonstrate function and appe ar morphologically normal. The pancreas is unremarkable. There is no significant retrocrural, iliac or inguinal adenopathy. The bladder is unremarkable. There is mucosal thickening involving the sigmoid: Into a lesser extent the descending colon there is also some mucosal thickening involving the transverse and ascending colons. The appendix is normal. Small bowel loops are normal in caliber. There is no free air and no free fluid identified. There is mild hypertrophic spondylosis within the spine. IMPRESSION: 1. DIFFUSE COLONIC MUCOSAL THICKENING. PLEASE CORRELATE FOR COLITIS. 2. MILD HEPATOMEGALY. 3. STABLE LEFT ADRENAL MASS LESION. 4. MILD DEGENERATIVE CHANGES WITHIN THE SPINE.
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
[2019-11-27] MEDS ORDERED: KETOROLAC 30 MG/ML 1 ML VIAL IVP STA (13:53)
[2019-11-27 14:51] LABS: Appearance,Urine Clear (Clear); Bilirubin,Urine Negative (Negative); Blood,Urine Negative (Negative); Color,Urine Light Yellow; Glucose,Urine (UA) Negative (Negative); Ketones,Urine Negative (Negative); Leukocyte Esterase,Urine Negative (Negative); Nitrite,Urine Negative (Negative); PH, Urine 5.5 (5.0-8.0); Protein,Urine Negative (Negative); Specific Gravity,Urine 1.044 (1.001-1.035); Urobilinogen,Urine <2.0 mg/dL (<2.0)
[2019-11-27] MEDS ORDERED: LIDOCAINE 5% PATCH TOPICAL STA (15:37)
[2019-11-27 15:50] VITALS: BP 144/89; PULSE 58; RESP 16; TEMP 98
== END 2019-11-27 15:50 | disposition home or self-care (01) ==
LOC: EC 11:02
DX: K52.9 Noninfective gastroenteritis and colitis, unspecified (principal); E87.2 Acidosis; I10 Essential (primary) hypertension; E78.5 Hyperlipidemia, unspecified; I25.10 Atherosclerotic heart disease of native coronary artery without angina pectoris; F17.200 Nicotine dependence, unspecified, uncomplicated; Z79.82 Long term (current) use of aspirin; Z79.01 Long term (current) use of anticoagulants; Z79.899 Other long term (current) drug therapy; Z90.81 Acquired absence of spleen
CPT/HCPCS: 36415; 93005; 80053; 83605; 83690; 84484; 85025; 81003; 74177; 99285; 96374; 96375 ×2; 96361 ×2; J2270; J1885; J1170; Q9967

== ENCOUNTER → 2024-02-19 | Outpatient (CLI) | payer BC ==
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
== END | disposition home or self-care (01) ==
LOC: RADMRIMAIN 14:22
PROVIDERS: ATTEND Physical Medicine & Rehabilitation
CPT/HCPCS: 72148

== ENCOUNTER 2024-03-11 09:07 | Day surgery (SDC) | payer BC ==
[~2024-03-11 09:07] MED LIST: LIDOCAINE 1% (10MG/ML) FOR IV START INTRADERMA PRN
[2024-03-11 09:51] VITALS: TEMP 97.5
[2024-03-11] MEDS: LACTATED RINGERS 1,000 ML IV SCH (09:54)
[2024-03-11] MEDS: IV FLUID CONTINUATION 1,000 ML IV ONE (09:54)
[2024-03-11] MEDS ORDERED: PROPOFOL 10 MG/ML 20 ML VIAL IV ONE (10:23)
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
--- NOTE | 2024-03-11 10:45 | P.OP ---
Date of Procedure: 03/11/24 Preoperative Diagnosis: Positive Cologuard test Postoperative Diagnosis: Cecal polyp Procedure(s) Performed: Colonoscopy Anesthesia: MAC Surgeon: David Dorado Pathology: other (Cecal polyp) Condition: stable Disposition: PACU Description of Procedure: The patient is placed on the endoscopy table in the lateral position. He received IV sedation. Digital rectal exam was performed. This revealed no abnormalities. The flexible colonoscope was then placed patient anus passed throughout the entire colon. At the ileocecal valve there were 2 sessile polyps removed with a cold forcep. Scope was withdrawn. The ascending colon appeared normal. The transverse colon. Normal. The descending colon appeared normal. The sigmoid colon appeared normal. Scope was back to the rectum this appeared normal. Scope withdrawn for the patient.
[2024-03-11 11:18] VITALS: BP 165/90; PULSE 55; RESP 19
== END 2024-03-11 11:35 | disposition home or self-care (01) ==
LOC: ORWHC2ENDO 09:07
PROVIDERS: ATTEND Surgery
DX: D12.0 Benign neoplasm of cecum (principal); I25.10 Atherosclerotic heart disease of native coronary artery without angina pectoris; E78.5 Hyperlipidemia, unspecified; I10 Essential (primary) hypertension; F41.9 Anxiety disorder, unspecified; Z95.1 Presence of aortocoronary bypass graft; Z95.5 Presence of coronary angioplasty implant and graft; Z87.891 Personal history of nicotine dependence; Z82.49 Family history of ischemic heart disease and other diseases of the circulatory system; Z80.3 Family history of malignant neoplasm of breast; Z79.02 Long term (current) use of antithrombotics/antiplatelets; Z79.82 Long term (current) use of aspirin; Z79.899 Other long term (current) drug therapy
CPT/HCPCS: 88305; 45380; J2704